=== PATIENT | male | born 1975 | race Caucasian/White ===

== ENCOUNTER 2018-04-02 14:07 | Emergency (ER) | END 2018-04-02 14:20 | disposition left against medical advice (07) ==

== ENCOUNTER 2018-07-13 17:00 | Emergency (ER) | payer OTHER ==
[~2018-07-13] VITALS: Ht 162.6 cm; Wt 78.0 kg
[2018-07-13 17:22] VITALS: Ht 162.6 cm; Wt 78.0 kg
[2018-07-13] MEDS ORDERED: KETOROLAC 30 MG INJ IV STA (19:37)
--- NOTE | 2018-07-13 20:10 | ERD ---
ER Documentation Chief Complaint Chief Complaint pt is sent by PMD for chest pain starting this am HPI 42-year-old male presenting with left flank pain that started early this morning. He has been recently ill with a cold, coughing frequently. His cold symptoms have been improving. He states the pain is aching, nonradiating, worse with movement and deep breathing. No associated chest pain or shortness of breath. No phlegm production. Denies any abdominal pain, dysuria, hematuria. ROS All systems reviewed and are negative except as per history of present illness. Medications Home Meds Active Scripts Ibuprofen* (Motrin*) 600 Mg Tab, 600 MG PO Q6H PRN for PAIN AND OR ELEVATED TEMP, #30 TAB Prov:RICHARD MAYORGA MD 07/13/18 Allergies Allergies: Coded Allergies: No Known Allergies (Verified Allergy, Mild, 03/13/16) PMhx/Soc History of Surgery: Yes (FX OF TIB/FIB 09/28/08) Anesthesia Reaction: No Hx Neurological Disorder: No Hx Respiratory Disorders: No Hx Cardiac Disorders: No Hx Psychiatric Problems: Yes (anxiety) Hx Miscellaneous Medical Probl: No Hx Alcohol Use: Yes (32 OZ BEER X2/DAY) Hx Substance Use: No Hx Tobacco Use: Yes Smoking Status: Current every day smoker FmHx Family History: No coronary disease Physical Exam Vitals Vital Signs Date Temp Pulse Resp B/P (MAP) Pulse Ox O2 O2 Flow FiO2 Time Delivery Rate 07/13/18 86 21 140/87 98 Room Air 22:52 (104) 07/13/18 90 20 150/70 99 Room Air 21:30 (96) 07/13/18 105 26 155/95 100 Room Air 18:55 (115) 07/13/18 98.7 110 20 187/99 99 17:22 (128) Physical Exam Const: No acute distress Head: Atraumatic Eyes: Normal Conjunctiva, PERRLA, EOMI ENT: Normal External Ears, Nose and Mouth. Neck: Full range of motion. No meningismus. Resp: Clear to auscultation bilaterally Cardio: Tachycardic with regular rhythm, no murmurs. 2+ distal pulses equal in all 4 extremities Abd: Soft, non tender, non distended. Normal bowel sounds Skin: No petechiae or rashes Back: No flank tenderness or midline tenderness. He is tender to palpation of the left lower lateral rib area. Reproduces pain. Ext: No cyanosis, or edema Neur: Awake and alert Psych: Somewhat anxious. Result Diagram: 07/13/18184907/13/181849 Results 24 hrs Laboratory Tests Test 07/13/18 18:50 07/13/18 19:02 White Blood Count 8.1 10^3/ul Red Blood Count 5.10 10^6/ul Hemoglobin 15.4 g/dl Hematocrit 43.9 % Mean Corpuscular Volume 86.1 fl Mean Corpuscular Hemoglobin 30.2 pg Mean Corpuscular Hemoglobin Concent 35.1 g/dl Red Cell Distribution Width 12.5 % Platelet Count 246 10^3/UL Mean Platelet Volume 10.6 fl Immature Granulocytes % 0.500 % Neutrophils % 70.2 % Lymphocytes % 18.9 % Monocytes % 9.5 % Eosinophils % 0.2 % Basophils % 0.7 % Nucleated Red Blood Cells % 0.0 /100WBC Immature Granulocytes # 0.040 10^3/ul Neutrophils # 5.7 10^3/ul Lymphocytes # 1.5 10^3/ul Monocytes # 0.8 10^3/ul Eosinophils # 0.0 10^3/ul Basophils # 0.1 10^3/ul Nucleated Red Blood Cells # 0.0 10^3/ul D-Dimer 270.29 ng/ml D-Dimer Comment Urine Color YELLOW Urine Clarity CLEAR Urine pH 7.0 Urine Specific [place] 1.027 Urine Ketones TRACE mg/dL Urine Nitrite NEGATIVE mg/dL Urine Bilirubin NEGATIVE mg/dL Urine Urobilinogen NEGATIVE mg/dL Urine Leukocyte Esterase TRACE Namita/ul Urine Microscopic RBC 1 /HPF Urine Microscopic WBC 3 /HPF Urine Hemoglobin NEGATIVE mg/dL Urine Glucose 3+ mg/dL Urine Total Protein NEGATIVE mg/dl Sodium Level 135 mmol/L Potassium Level 4.1 mmol/L Chloride Level 99 mmol/L Carbon Dioxide Level 27 mmol/L Anion Gap 9 Blood Urea Nitrogen 10 mg/dl Creatinine 0.60 mg/dl Est Glomerular Filtrat Rate mL/min > 60 mL/min Glucose Level 328 mg/dl Calcium Level 9.8 mg/dl Total Bilirubin 0.2 mg/dl Direct Bilirubin 0.00 mg/dl Indirect Bilirubin 0.2 mg/dl Aspartate Amino Transf (AST/SGOT) 60 IU/L Alanine Aminotransferase (ALT/SGPT) 64 IU/L Alkaline Phosphatase 139 IU/L Troponin I < 0.012 ng/ml Total Protein 7.8 g/dl Albumin 4.4 g/dl Globulin 3.40 g/dl Albumin/Globulin Ratio 1.29 Urine Opiates Screen Negative Urine Barbiturates Negative Urine Amphetamines Screen Negative Urine Benzodiazepines Screen Negative Urine Cocaine Screen Negative Urine Cannabinoids Negative Bedside Urine pH (LAB) 7.0 Bedside Urine Protein (LAB) Negative Bedside Urine Glucose (UA) 0.50% Bedside Urine Ketones (LAB) Negative Bedside Urine Blood Negative Bedside Urine Nitrite (LAB) Negative Bedside Urine Leukocyte Esterase (L Negative Current Medications Medications Dose Sig/Freedom Start Time Status Last (Trade) Ordered Route PRN Stop Time Admin Dose Reason Admin Ketorolac 30 mg ONCE STAT 07/13/18 DC 07/13/18 Tromethamine IV 19:37 07/13/18 19:58 (Toradol) 19:38 Sodium 1,000 ml @ Q1H STAT 07/13/18 DC 07/13/18 Chloride 1,000 mls/hr IV 20:16 07/13/18 20:42 21:15 Procedures/MDM EMERGENT LABS AND DIAGNOSTIC STUDIES: Lab Results above were reviewed and interpreted by me. CBC: no anemia or evidence of infection CMP: Hyperglycemic without evidence of acidosis. No evidence of electrolyte abnormality, renal failure, liver failure, or biliary obstruction Troponin within normal limits, not indicative of cardiac ischemia UA: Positive for glucose, no evidence of infection Gonorrhea and chlamydia tests pending Urine drug screen negative D-dimer negative, no evidence of blood clot 12-lead EKG was interpreted by Reina Mayorga MD: Sinus tachycardia at 105 bpm Rightward axis Normal intervals No acute ST or T wave changes suggestive of acute ischemia or STEMI. Radiology Results as interpreted by Radiology below were reviewed by Malathi Mayorga MD: Chest x-ray shows no acute abnormalities Initial Nursing notes reviewed. Previous Medical Records requested via the Electronic Health Record. EMERGENCY DEPARTMENT COURSE / MEDICAL DECISION MAKING: Patient is presenting with left flank pain that is worse with movement. Vitals were notable for tachycardia and hypertension. Patient was treated with Toradol for his pain as well as IV fluids. His labs did not show any significant abnormalities other than hyperglycemia. Patient does not have a history of diabetes. Otherwise his labs not show any significant abnormalities. There is no evidence of pyelonephritis. Doubt aortic dissection or ureterolithiasis. No evidence of pneumonia or rib fracture. I have a low suspicion for pulmonary embolism. There is no evidence of hypertensive emergency. Patient's blood pressure was elevated (>120/80) but appears stable without evidence of hypertensive emergency or urgency. The patient was counseled about the risks of hypertension and urged to pursue outpatient monitoring and therapy within a week with their primary care physician. I gave him a prescription for ibuprofen for pain control. Follow-up with PCP was recommended for next week. Return precautions discussed. Departure Diagnosis: Primary Impression: Left flank pain Additional Impressions: Hyperglycemia Asymptomatic hypertension Condition: Stable RICHARD MAYORGA MD Jul 13, 2018 20:10
[2018-07-13] MEDS ORDERED: SOD CHLORIDE 0.9% 1,000 ML IV STA (20:16)
[2018-07-13] MEDS ORDERED: IBUP-1542 PO (22:46)
[2018-07-13 22:52] VITALS: BP 140/87; PULSE 86; RESP 21
== END 2018-07-13 22:53 | disposition home or self-care (01) ==
LOC: E/R 17:00
DX: R10.9 Unspecified abdominal pain (principal); R73.9 Hyperglycemia, unspecified; I10 Essential (primary) hypertension; F17.210 Nicotine dependence, cigarettes, uncomplicated
CPT/HCPCS: 71045; 80053; 80307; 81001; 81003; 84484; 85025; 85378; 87591; J1885; J7030; 36415; 93005; 96374